=== PATIENT | female | born 1975 | race Caucasian/White ===

== ENCOUNTER 2016-12-18 13:42 | Observation (INO) ==
[2016-12-18 14:56] VITALS: BMI 47.0
[2016-12-18] MEDS ORDERED: ONDANSETRON 4 MG/2 ML INJECTION IVP PRN (15:16)
[2016-12-18] MEDS ORDERED: MORPHINE SULFATE 4 MG SYRINGE IVP PRN (15:16)
[2016-12-18] MEDS ORDERED: ACETAMINOPHEN 325 MG TABLET PO PRN (15:16)
--- NOTE | 2016-12-18 16:09 | Cardiology History & Physical ---
History of Present Illness Chief complaint: chest pain HPI: Supriya is a 41 year old female who is well known to Dr. Avelar with a history of CAD, HTN, DM type II, and tobacco use. She was at work earlier today when she began having chest pain and tightness which radiated under her left axilla and into her left elbow. She reports SOA with the episode that she describes as the inability to breathe due to the chest tightness. She was taken to the ED, where she received 4 baby Aspirin and after 3 SL nitro her pain resolved and has not returned. She had normal labs and EKG was without ischemic changes. She is examined in her room on the Surgical unit, family members are at the bedside. She denies recent illness, fever, chills, dizziness or syncope, sore throat, cough, N/V/D, or dysuria. Review of Systems - Constitutional Constitutional: Absent: chills, fever(s), weight loss - EENMT Eyes: Absent: change in vision Balance: Absent: vertigo Mouth/Throat: Absent: sore throat - Cardiovascular Cardiovascular: Present: chest pain. Absent: palpitations, syncope, dyspnea on exertion, orthopnea, edema Vascular: Absent: pedal edema - Respiratory Respiratory: Absent: cough, dyspnea - Gastrointestinal Gastrointestinal: Absent: diarrhea, nausea, vomiting - Genitourinary Genitourinary: Absent: dysuria - Integumentary/Breasts Integumentary: Absent: rash - Neurological Neurological: Absent: dizziness - Endocrine Endocrine: Absent: palpitations PFSH Patient Stated Medical History Other Cardiology Yes: "HEART BURN" Bronchitis Yes Diabetes Mellitus Type 2 Yes Irregular Menses Yes Clinic Medical History (Last Reviewed 11/21/16 @ 13:03 by JAQUELINE Rahman) Diabetes mellitus (Chronic Medical) HTN (hypertension) (Chronic Medical) PCOS (polycystic ovarian syndrome) (Chronic Medical) Surgical History: 3 C sections. Hysterectomy 2009 (gained 75# in a year after on hormones). Cholecystectomy 1999. Tubal ligation 2004. Heart cath (some blockage) 10/2014. Left knee repair (root tear of medial meniscus) 11/2015. Dr. Castillo. Re-do of knee repair 02/2016. Family History: Family History (Last Reviewed 11/21/16 @ 13:03 by JAQUELINE Rahman) Father , age 40 - heart attack Heart attack - Social History Smoking status: Current every day smoker Substance use type: does not use Alcohol intake frequency: does not drink Household members: children Current occupational status: employed Current residence: Apartment/Private Home Medications Home Medications Medication Instructions Recorded Confirmed Type Metoprolol Tartrate 50 mg PO BID #0 tab 11/10/14 12/18/16 History GlyBURIDE [Micronase] 5 mg PO DAILY 12/18/16 12/18/16 History Lisinopril [Prinivil] 10 mg PO DAILY 12/18/16 12/18/16 History Allergies Allergy/AdvReac Type Severity Reaction Status Date / Time cortisone Allergy Severe HIVES AND Verified 11/21/16 13:03 MOUTH SORES morphine Allergy Severe hives, Verified 11/21/16 13:03 Exam Vital signs: Temperature 98.0 F 12/18/16 14:54 Pulse Rate 71 12/18/16 14:54 Respiratory Rate 20 12/18/16 14:54 Blood Pressure 144/90 H 12/18/16 14:54 Pulse Oximetry 97 12/18/16 14:54 Oxygen Delivery Method Room Air - Constitutional no acute distress, obese, cooperative - Routine HEENT Exam Head: Present: normocephalic Nose: moist mucous membranes - Routine Neck Exam Absent: JVD, carotid bruit - Routine Chest/Breast/Axilla Exam Chest wall: Absent: tenderness - Routine Respiratory Exam Present: CTA bilaterally. Absent: rales, wheezes - Routine Cardiovascular Exam Present: RRR, no murmur - Routine Abdominal Exam Present: soft, normoactive bowel sounds - Routine Extremities Exam Present: no edema - Routine Skin Exam Present: intact, dry, warm. Absent: rash - Routine Neurological Exam Present: alert, oriented X3 - Routine Psychiatric Exam Present: normal affect, normal thought process Results 12/19/16 04:04 12/19/16 04:04 Intake and Output 12/18/16 12/18/16 12/18/16 06:59 14:59 22:59 Other: Weight 291 lb 7.218 oz Patient Weight 12/19/16 06:59 Weight 291 lb 7.218 oz - Imaging and Cardiology EKG results: image reviewed - EKG Interpretation EKG: sinus rhythm Hospital Course This is a general summary of the patient's hospital course. For more details refer to the complete medical record. Time spent with patient: 25 - 35 minutes Assessment and Plan (1) Precordial chest pain Status: Acute Resolved with Nitro and Aspirin, has not returned. Trend serial troponin levels , (first negative), repeat EKG. Start Aspirin 81mg po daily in am. (2) Atherosclerotic heart disease of [place] coronary artery without angina pectoris Status: Acute Last heart cath in 2014 with mild to moderate CAD, Continue current therapy with routine monitoring (3) Mixed hyperlipidemia Status: Acute (4) Essential (primary) hypertension Status: Acute (5) Type 2 diabetes mellitus without complications Status: Acute - Attestation Attestation Narrative: Recommendation After examining the patient I agree with the above assessment. I am involved in the formulation of the patient's plan of care. 12/19/16 13:03 Sepsis Assessment - Evaluation Sepsis screening result: No Definite Risk
[2016-12-18 23:40] VITALS: TEMP 98.7
[2016-12-19 07:43] VITALS: BP 139/69; PULSE 68; RESP 16; O2SAT 95
--- NOTE | 2016-12-19 08:59 | Discharge Summary ---
<Zoe Vickers - Last Filed: 12/19/16 08:56> Discharge Information Date of admission: 12/18/16 14:29 Anticipated date of discharge: 12/19/16 Attending Physician: Shubham Avelar MD Primary care physician: Olive Centeno, DALY - Discharge Diagnosis Discharge Diagnosis: CAD, HTN, DM - Laboratory Labs: 12/19/16 04:04 12/19/16 04:04 Laboratory Results - last 72 hr 12/18/16 12/18/16 12/18/16 15:38 17:38 18:15 WBC RBC Hgb Hct MCV MCH MCHC RDW Std Deviation Plt Count MPV Immature Gran % (Auto) Neut % (Auto) Lymph % (Auto) [place] % (Auto) Eos % (Auto) Baso % (Auto) Neut # Lymph # Sherman # Eos # Baso # Abs Immat Gran (auto) Turbidity Sodium Potassium Chloride Carbon Dioxide Anion Gap BUN Creatinine GFR Calculation BUN/Creatinine Ratio Glucose Glucometer 70 122 Calculated Osmolality Calcium Icterus Index Troponin I < 0.012 Specimen Hemolysis < 15 12/18/16 12/19/16 12/19/16 23:02 04:04 04:04 WBC 9.5 RBC 4.81 Hgb 13.8 Hct 42.5 MCV 88.4 MCH 28.7 MCHC 32.5 RDW Std Deviation 46.5 Plt Count 158 MPV 11.8 Immature Gran % (Auto) 0.3 Neut % (Auto) 56.7 Lymph % (Auto) 34.6 [place] % (Auto) 6.0 Eos % (Auto) 2.0 Baso % (Auto) 0.4 Neut # 5.4 Lymph # 3.3 Sherman # 0.6 Eos # 0.2 Baso # 0.0 Abs Immat Gran (auto) 0.03 Turbidity < 20 Sodium 140 Potassium 4.1 Chloride 108 H Carbon Dioxide 22 Anion Gap 10 BUN 12.0 Creatinine 0.6 L GFR Calculation 109 BUN/Creatinine Ratio 20 Glucose 233 H Glucometer Calculated Osmolality 276 Calcium 9.0 Icterus Index < 2 Troponin I < 0.012 < 0.012 Specimen Hemolysis < 15 < 15 12/19/16 06:08 WBC RBC Hgb Hct MCV MCH MCHC RDW Std Deviation Plt Count MPV Immature Gran % (Auto) Neut % (Auto) Lymph % (Auto) [place] % (Auto) Eos % (Auto) Baso % (Auto) Neut # Lymph # [place] # Eos # Baso # Abs Immat Gran (auto) Turbidity Sodium Potassium Chloride Carbon Dioxide Anion Gap BUN Creatinine GFR Calculation BUN/Creatinine Ratio Glucose Glucometer 199 Calculated Osmolality Calcium Icterus Index Troponin I Specimen Hemolysis History of Present Illness HPI: Supriya is a 41 year old female who is well known to Dr. Avelar with a history of CAD, HTN, DM type II, and tobacco use. She was at work earlier today when she began having chest pain and tightness which radiated under her left axilla and into her left elbow. She reports SOA with the episode that she describes as the inability to breathe due to the chest tightness. She was taken to the ED, where she received 4 baby Aspirin and after 3 SL nitro her pain resolved and has not returned. She had normal labs and EKG was without ischemic changes. She is examined in her room on the Surgical unit, family members are at the bedside. She denies recent illness, fever, chills, dizziness or syncope, sore throat, cough, N/V/D, or dysuria. Hospital Course This is a general summary of the patient's hospital course. For more details refer to the complete medical record. Hospital course: 12/18/16 Chest pain: Resolved with Nitro and Aspirin, has not returned. Trend serial troponin levels, (first negative), repeat EKG. Start Aspirin 81mg po daily in am. Will plan outpatient stress test for further evaluation. CAD: Last heart cath in 2014 with mild to moderate CAD, Will plan outpatient stress test for further evaluation. Continue current therapy with routine monitoring 12/19/16 Serial troponin levels were negative, repeat EKG without ischemic changes. Will discharge with follow up for outpatient stress test. Exam Vital signs: Temperature 98.7 F 12/18/16 23:39 Pulse Rate 68 12/19/16 07:42 Respiratory Rate 16 12/19/16 07:42 Blood Pressure 139/69 12/19/16 07:42 Pulse Oximetry 95 12/19/16 07:42 Oxygen Delivery Method Room Air - Constitutional no acute distress, obese, cooperative - Routine HEENT Exam Head: Present: normocephalic - Routine Neck Exam Absent: JVD, carotid bruit - Routine Chest/Breast/Axilla Exam Chest wall: Absent: tenderness - Routine Respiratory Exam Present: CTA bilaterally. Absent: rales, wheezes - Routine Cardiovascular Exam Present: no murmur. Absent: JVD - Routine Abdominal Exam Present: soft, normoactive bowel sounds - Routine Extremities Exam Present: no edema - Routine Skin Exam Present: intact, dry, warm - Routine Neurological Exam Present: alert, oriented X3 - Routine Psychiatric Exam Present: normal affect, normal thought process Results 12/19/16 04:04 12/19/16 04:04 Cardiac Enzymes 12/18/16 12/18/16 12/19/16 Range/Units 15:38 23:02 04:04 Troponin I < 0.012 < 0.012 < 0.012 (0-0.12) ng/ml CBC 12/19/16 Range/Units 04:04 WBC 9.5 (4.5-11.0) T/MM3 RBC 4.81 (4.00-5.20) M/MM3 Hgb 13.8 (12-16) GM/DL Hct 42.5 (36-46) % Plt Count 158 (130-400) T/MM3 Neut # 5.4 (1.8-7.7) T/MM3 Lymph # 3.3 (1-4.8) T/MM3 Sherman # 0.6 (0-0.8) T/MM3 Eos # 0.2 (0-0.5) T/MM3 Baso # 0.0 (0-0.2) T/MM3 Comprehensive Metabolic Panel 12/19/16 Range/Units 04:04 Sodium 140 (134-144) MEQ/L Potassium 4.1 (3.6-5) MEQ/L Chloride 108 H (98-107) MEQ/L Carbon Dioxide 22 (22-30) MEQ/L BUN 12.0 (7-17) MG/DL Creatinine 0.6 L (0.7-1.2) MG/DL Glucose 233 H (65-110) MG/DL Calcium 9.0 (8.4-10.2) MG/DL Intake and Output 12/18/16 12/19/16 12/19/16 22:59 06:59 14:59 Intake Total 591 / 591 Balance 591 / 591 Intake: Oral 591 / 591 Other: # Voids 2 Weight 292 lb 1.8 oz Patient Weight 12/20/16 06:59 Weight 292 lb 1.8 oz - Imaging and Cardiology EKG results: image reviewed - EKG Interpretation EKG: WNL, sinus rhythm Discharge Plan - Med Rec/Dispo Referrals/Follow Up: Shubham Avelar MD [Physician] - 01/08/17 10:30 am Kush Instructions: Chest Pain (DC) Prescriptions: New Aspirin *EC* [Ecotrin] 81 mg PO DAILY #30 tablet Continue Metoprolol Tartrate 50 mg PO BID #0 tab GlyBURIDE [Micronase] 5 mg PO DAILY Lisinopril [Prinivil] 10 mg PO DAILY sitagliptin 100 mg tablet 100 mg PO DAILY #30 tab - Disposition 01 Discharged Home, Self-Care <Shubham Avelar - Last Filed: 12/19/16 13:10> Discharge Information Date of admission: 12/18/16 14:29 Attending Physician: Shubham Avelar MD Primary care physician: Olive Centeno APRN - Laboratory Labs: 12/19/16 04:04 12/19/16 04:04 Hospital Course This is a general summary of the patient's hospital course. For more details refer to the complete medical record. Exam Vital signs: Temperature 98.7 F 12/18/16 23:39 Pulse Rate 68 12/19/16 07:42 Respiratory Rate 16 12/19/16 07:42 Blood Pressure 139/69 12/19/16 07:42 Pulse Oximetry 95 12/19/16 07:42 Oxygen Delivery Method Room Air Results 12/19/16 04:04 12/19/16 04:04 Cardiac Enzymes 12/18/16 12/18/16 12/19/16 Range/Units 15:38 23:02 04:04 Troponin I < 0.012 < 0.012 < 0.012 (0-0.12) ng/ml CBC 12/19/16 Range/Units 04:04 WBC 9.5 (4.5-11.0) T/MM3 RBC 4.81 (4.00-5.20) M/MM3 Hgb 13.8 (12-16) GM/DL Hct 42.5 (36-46) % Plt Count 158 (130-400) T/MM3 Neut # 5.4 (1.8-7.7) T/MM3 Lymph # 3.3 (1-4.8) T/MM3 Sherman # 0.6 (0-0.8) T/MM3 Eos # 0.2 (0-0.5) T/MM3 Baso # 0.0 (0-0.2) T/MM3 Comprehensive Metabolic Panel 12/19/16 Range/Units 04:04 Sodium 140 (134-144) MEQ/L Potassium 4.1 (3.6-5) MEQ/L Chloride 108 H (98-107) MEQ/L Carbon Dioxide 22 (22-30) MEQ/L BUN 12.0 (7-17) MG/DL Creatinine 0.6 L (0.7-1.2) MG/DL Glucose 233 H (65-110) MG/DL Calcium 9.0 (8.4-10.2) MG/DL Intake and Output 12/18/16 12/19/16 12/19/16 22:59 06:59 14:59 Intake Total 591 / 591 Balance 591 / 591 Intake: Oral 591 / 591 Other: # Voids 2 Weight 132.5 kg Patient Weight 12/20/16 06:59 Weight 132.5 kg Discharge Plan - Med Rec/Dispo - Attestation Attestation Narrative: 12/19/16 13:10 Recommendation After examining the patient I agree with the above assessment. I am involved in the formulation of the patient's plan of care.
[2016-12-19] MEDS ORDERED: ASPIRIN *EC* 81 MG TABLET PO SCH (09:00)
== END 2016-12-19 10:08 | disposition home or self-care (01) ==
LOC: SRG
PROVIDERS: ADMIT Internal Medicine Cardiovascular Disease; ATTEND Internal Medicine Cardiovascular Disease

== ENCOUNTER 2017-07-28 15:46 | Observation (INO) ==
[2017-07-28] MEDS ORDERED: SALINE FLUSH 10ml SYRINGE IVF PRN (16:00)
--- OUTSIDE RECORDS SUMMARY | 2017-07-28 16:07 | External Medical Summary ---
:1975 Author Organization [employer] Care Team Providers Name Role Phone Yessy Saldaña Provider Role Unavailable Allergies, Adverse Reactions, Alerts Substance Reaction Event Type Cortizone-10 hives Drug Allergy Morphine Sulfate hives Drug Allergy Problems Problem Type Condition Code Onset Dates Condition Status Assessment Cough R05 Active Problem Essential (primary) hypertension I10 Active Problem Wheezing R06.2 Active Problem Cough R05 Active Problem Obesity, unspecified 278.00 Active Assessment Wheezing R06.2 Active Problem Unspecified essential hypertension 401.9 Active Problem Diabetes mellitus without mention of 250.02 Active complication, type II or unspecified type, uncontrolled Medications Medication Code Code Instructions Start End Status Dosage System Date Date Metoprolol Tartrate NDC 33330-5 50 MG Orally 1 tablet 733-01 Twice a day Lisinopril NDC 63155-9 20 MG Orally 1 tablet 268-01 Once a day Amoxicillin-Pot NDC 15441-6 875-125 MG Mar 15Mar 25, 1 tablet Clavulanate 275-34 Orally Twice a 2014 2014 day Ibuprofen NDC 43297-5 200 MG Orally 1 tablet 074-71 every 6 hrs as needed Guaifenesin-Codeine NDC 99740-2 100-10 MG/5ML Mar 15Mar 25, 5 ml as 110-04 Orally every 6 2014 2014 needed hrs Tradjenta NDC 58674-5 5 MG Orally 1 tablet 140-30 Once a day Tylenol NDC 29225-5 325 MG Orally 1 tablet 496-60 every 6 hrs as needed Hydrochlorothiazide NDC 33851-8 25 MG Orally 1 tablet 256-01 Once a day Albuterol Sulfate NDC 65920-0 (2.5 MG/3ML) Mar 15, 3 ml 990-52 0.083% 2014 Inhalation Three times a day Procedures Procedure Coding System Code Date OFFICE VISIT, EST-MOD. COMPLEXITY (25 MIN) CPT-4 55326 Mar 15, 2015 Vital Signs Date/Time: Mar 15, 2015 Height 66 in Weight 280.8 lbs Temperature 98.5 F Blood Pressure Diastolic 96 mm Hg Blood Pressure Systolic 156 mm Hg Cardiac Monitoring Heart Rate 78 /min BMI 45.32 Index Oximetry 94 % Results No Known Results Summary Purpose [employer] Submission
--- NOTE | 2017-07-28 16:12 | Emergency Department Report ---
General Adult HPI - General Chief complaint: Chest Pain Stated complaint: high bp, soa, chest pain, cough Time Seen by Provider: 07/28/17 15:59 Source: patient Mode of arrival: ambulatory Limitations: no limitations - History of Present Illness HPI narrative: 41-year-old female presents to the emergency department with a chief complaint of elevated blood pressure and chest tightness. Patient noted onset of symptoms one day ago. Patient has been battling upper respiratory symptoms and has been wheezing and having a cough that is nonproductive. He did not take her antihypertensive medication regimen today. She denies pain going through to her back but does note that her chest does feel tight. She was at home when her symptoms began. Symptoms have been persistent in nature since onset. She originally presented to urgent care and was referred to the emergency department for further evaluation and treatment. - Related Data Home Medications Medication Instructions Recorded Confirmed dapagliflozin 10 mg tablet 10 mg PO QAM 03/20/17 07/28/17 Catapres (clonidine HCl) 0.1 mg 0.1 mg PO BID PRN tab 07/28/17 07/28/17 tablet DiltiaZEM SR [Cardizem SR 125 MG 1 tab PO QAM 07/28/17 07/28/17 (12 HR RELEASE)] Insulin Glargine,Hum.rec.anlog 35 unit SQ QAM 07/28/17 07/28/17 [Lantus Solostar] Metoprolol Succinate (XL) [Toprol 50 mg PO BID 07/28/17 07/28/17 Xl] Previous Rx's Medication Instructions Recorded Zocor (simvastatin) 20 mg tablet 20 mg PO HS #90 tab 03/12/17 Maxzide-25mg (triamterene 37.5 2 tab PO QAM #60 tab 04/04/17 mg-hydrochlorothiazide 25 mg) tablet Albuterol Neb (0.083%) [Proventil 5 mg AEROSOL Q4H PRN #25 each 07/29/17 Neb (0.083%)] Benzonatate [Tessalon Perles] 200 mg PO TID PRN #20 cap 07/29/17 DiltiaZEM SR [Cardizem SR 125 MG 240 mg PO HS cap 07/29/17 (12 HR RELEASE)] Hydrocodone/Chlorphen Oral Liq 5 ml PO Q12H PRN #4 oz 07/29/17 [Tussionex] Lisinopril [Prinivil] 20 mg PO BID tab 07/29/17 Allergies Allergy/AdvReac Type Severity Reaction Status Date / Time cortisone Allergy Severe HIVES AND Verified 07/28/17 16:11 MOUTH SORES morphine Allergy Severe hives, Verified 07/28/17 16:11 Review of Systems Constitutional: Denies: fever, chills Eyes: Denies: eye pain, vision change ENT: Denies: ear pain, throat pain Cardiovascular: Reports: chest pain. Denies: palpitations Respiratory: Reports: cough, dyspnea, wheezes Gastrointestinal: Denies: abdominal pain, nausea, vomiting, diarrhea Genitourinary: Denies: urgency, dysuria Musculoskeletal: Denies: back pain, arthralgia Integumentary: Denies: erythema, rash Neurological: Denies: headache, numbness Psychiatric: Denies: anxiety, depression Endocrine: Denies: polydipsia, polyuria Hematological/Lymphatic: Denies: easy bruising, lymphadenopathy Allergic/Immunologic: Denies: facial swelling, urticaria PFSH Patient Stated Medical History Cerebrovascular Accident No Hypertension Yes Peripheral Vascular Disease No Other Cardiology Yes: "HEART BURN" Bronchitis Yes Diabetes Mellitus Type 2 Yes Recreational Drug Use No Irregular Menses Yes Clinic Medical History (Last Reviewed 07/28/17 @ 15:23 by Ofe Ashraf [facility]) Type 2 diabetes mellitus (Chronic Medical) PCOS (polycystic ovarian syndrome) (Chronic Medical) HTN (hypertension) (Chronic Medical) Surgical History: 3 C sections. Hysterectomy 2009 (gained 75# in a year after on hormones). Cholecystectomy 1999. Tubal ligation 2004. Heart cath (some blockage) 10/2014. Left knee repair (root tear of medial meniscus) 11/2015. Dr. Castillo. Re-do of knee repair 02/2016. Family History: Family History (Last Reviewed 07/28/17 @ 20:17 by Danica White MD) Father , age 40 - heart attack Heart attack - Social History Smoking status: Current every day smoker Substance use type: does not use Alcohol intake frequency: does not drink Household members: children Current occupational status: employed Current residence: Apartment/Private Home Physical Exam - Limitations Limitations: no limitations - General General appearance: alert, in no apparent distress - Normal Exams: Head:: Normocephalic without trauma Eyes:: Pupils are PERRLA w/ EOMI, No scleral icterus, irritation, or foreign bodies noted ENMT:: No facial trauma, nasal exudates, pharyngeal erythema, or exudates are noted Dental: No fractured, loose, or missing teeth noted Neck:: Full range of motion, without adenopathy, JVD, bruits or thyromegaly Chest/Respirations:: with good airflow (Bilateral end expiratory wheezes. ), and symmetry bilaterally Cardiovascular:: Regular rate and rhythm, without murmur or gallop, Pulses 2+ all extremities, capillary refill, <2 seconds all extremities Abdomen:: Bowel sounds positive, soft, non-tender, non-distended, no hepatosplenomegaly, masses or bruits noted Lymphatic:: No lymphadenopathy, or lymphedema noted Musculoskeletal:: No tenderness, or deformity noted, good range of motion, all extremities Integumentary:: No rashes, hives, or bruising noted, hair and nails, without abnormality Neurological:: Patient is alert, and oriented, cranial nerves, motor/sensory/ cerebellar, exams w/o gross deficits, to observation Psychiatric:: Patient exhibits, appropriate attention, emotion and affect Course Vital Signs Pulse Rate 99 07/28/17 15:59 Temperature 98.1 F 07/29/17 09:00 Pulse Rate 52 L 07/29/17 11:00 Respiratory Rate 22 07/29/17 11:00 Blood Pressure 138/80 07/29/17 10:00 Pulse Oximetry 94 07/29/17 10:00 Medical Decision Making - [facility] Narrative Medical decision making narrative: Labs / imaging were discussed in detail with the patient and family and questions are answered. Patient is given her oral antihypertensive medication regimen in the emergency department with improvement of blood pressure. She will be monitored to ensure slow lowering of blood pressure so as not to injure her cerebral perfusion pressure. Patient is still hypertensive at 200 systolic and is discussed with Dr. White and admitted to the CCU in improved condition. She is given aspirin 324 mg by mouth 1. She is given a DuoNeb in the emergency Department. Patient is in agreement with the current plan of management. She is admitted to the hospital in improved condition. No further orders from accepting physician who is in agreement with the current plan of management. - Differential Diagnosis hypertensive urgency, hypertensive emergency, acs, medical noncompliance - Lab Data Result diagrams: 07/29/17 04:15 07/29/17 04:15 Lab Results 07/28/17 07/28/17 Range/Units 16:07 16:07 WBC 11.3 H (4.5-11.0) T/MM3 RBC 5.02 (4.00-5.20) M/MM3 Hgb 14.8 (12-16) GM/DL Hct 43.3 (36-46) % MCV 86.3 (80-100) UM3 MCH 29.5 (26-34) UUG MCHC 34.2 (31-37) GM/DL RDW Std Deviation 44.1 (36.9-50.2) FL Plt Count 149 (130-400) T/MM3 MPV 11.1 (9.4-12.4) UM3 Immature Gran % (Auto) 0.4 (0.0-0.5) % Neut % (Auto) 62.2 (33-66) % Lymph % (Auto) 29.8 (23-45) % [place] % (Auto) 5.5 (0-9.0) % Eos % (Auto) 1.8 (0-4) % Baso % (Auto) 0.3 (0-2) % Neut # (Auto) 7.0 (1.8-7.7) T/MM3 Lymph # (Auto) 3.4 (1-4.8) T/MM3 [place] # (Auto) 0.6 (0-0.8) T/MM3 Eos # (Auto) 0.2 (0-0.5) T/MM3 Baso # (Auto) 0.0 (0-0.2) T/MM3 Abs Immat Gran (auto) 0.05 H (0.00-0.03) T/MM3 Turbidity < 20 (0-20) Sodium 141 (134-144) MEQ/L Potassium 3.9 (3.6-5) MEQ/L Chloride 105 (98-107) MEQ/L Carbon Dioxide 23 (22-30) MEQ/L Anion Gap 13 (5-15) MEQ/L BUN 12.0 (7-17) MG/DL Creatinine 0.6 L (0.7-1.2) mg/dL GFR Calculation 109 BUN/Creatinine Ratio 20 (6-26) RATIO Glucose 270 H (65-110) MG/DL Calculated Osmolality 281 H (261-280) MOSM/KG Calcium 9.5 (8.4-10.2) MG/DL Total Bilirubin 0.30 (0.20-1.30) MG/DL Icterus Index < 2 (0-7) AST 17 (14-36) U/L ALT 32 (9-52) U/L Alkaline Phosphatase 109 (38-126) U/L Troponin I < 0.012 (0-0.12) ng/ml Total Protein 7.9 (6.3-8.2) g/dL Albumin 4.1 (3.5-5.0) g/dL Globulin 3.8 H (2.4-3.6) G/DL Albumin/Globulin Ratio 1.1 (1.1-2.2) RATIO Specimen Hemolysis < 15 (0-25) - Radiology Data CXR - No acute processes. - EKG Data EKG #1 EKG results narrative: Sinus rhythm. Normal EKG. 99 bpm. No STEMI. Disposition Clinical Impression: Hypertensive urgency Disposition: 02 To [facility] Condition: Improved Time of Disposition: 17:46 (Admit. Dr. White. ) - Seen By: physician
[2017-07-28] MEDS ORDERED: IOHEXOL 350mg/ml 75ml INJECTION ONE (17:04)
[2017-07-28] MEDS ORDERED: IOHEXOL 350mg/ml 50ml INJECTION ONE (17:05)
[2017-07-28] MEDS ORDERED: NS 0 ML ONE (17:05)
[2017-07-28] MEDS ORDERED: SALINE FLUSH 10ml SYRINGE ONE (17:05)
[2017-07-28] MEDS ORDERED: ALBUTEROL/IPRATROPIUM 2.5mg-0.5mg/3ml NEB AEROSOL ONE (17:54)
[2017-07-28] MEDS ORDERED: ASPIRIN 81 MG CHEWABLE TABLET PO ONE (18:15)
[2017-07-28] MEDS ORDERED: DILTIAZEM 120 MG PO ONE (18:33)
[2017-07-28] MEDS ORDERED: ONDANSETRON 4 MG/2 ML INJECTION IVP PRN (19:19)
[2017-07-28] MEDS ORDERED: HYDROCODONE/CHLORPHENIRAMINE ER ORAL LIQ 5ml PO PRN (19:23)
[2017-07-28 19:37] VITALS: BMI 47.4
[2017-07-28] MEDS ORDERED: HYDRALAZINE 20 MG/ML INJECTION IVP PRN (19:37)
--- NOTE | 2017-07-28 20:16 | History & Physical Report ---
History of Present Illness Date: 07/28/17 Chief complaint: hypertensive urgency HPI: Supriya is a 41-year-old female who presented to intermediate care earlier today for evaluation of an upper respiratory infection characterized by minimally productive cough, wheezing, and tightness in her chest present for 2-3 days. She feels that she can't take it deep breath due to the tightness in her chest and wheezing. Chest and sinus congestion and postnasal drainage but no ear symptoms. She denies having fevers or chills. She reports that she coughed all night last night and is excessively fatigued. Additionally a family member was hospitalized in [place] and she spent part of the night in [place]. Subsequently she did not take her morning blood pressure medications. Which presented to intermediate care today her blood pressure was significantly elevated with initial report of 231/137. She was referred to the emergency room for further evaluation and management. On arrival in the emergency room blood pressure was 272/159. Patient reports that typically when her blood pressure is elevated she is aware of it and has a headache which is not present at this time. She was treated with an initial dose of 0.1 mg clonidine and later received a dose of po metoprolol. She was additionally treated with a single breathing treatment which relaxed breathing and relieved wheezing. Patient describes history of hypertension with prior workup by Dr. Avelar including evaluation of her adrenal glands and renal arteries within the past year. Renal sonogram with Doppler last February suggested some component of right renal artery stenosis. Review of Systems All systems PM: 10-point ROS was reviewed, no additional remarkable complaints except (URI symptoms as described in history of present illness, sleep disruption from cough, headaches when blood pressure is elevated (but only checks her blood pressure when she has a headache); remainder of comprehensive review of systems was negative.) Past Medical History Patient Stated Medical History Hypertension Yes Bronchitis Yes Diabetes Mellitus Type 2 Yes Irregular Menses Yes Clinic Medical History (Last Reviewed 07/28/17 @ 15:23 by Ofe Ashraf Fredy) Type 2 diabetes mellitus (Chronic Medical) PCOS (polycystic ovarian syndrome) (Chronic Medical) HTN (hypertension) (Chronic Medical) Surgical History: 3 C sections. Hysterectomy 2009 (gained 75# in a year after on hormones). Cholecystectomy 1999. Tubal ligation 2004. Heart cath (some blockage) 10/2014. Left knee repair (root tear of medial meniscus) 11/2015. Dr. Castillo. Re-do of knee repair 02/2016. Family History: Family History (Last Reviewed 07/28/17 @ 15:23 by Ofe Ashraf [facility]) Father , age 40 - heart attack Heart attack Family History Updates: Mother is healthy; patient denies family history of hypertension - Social History Smoking status: Current every day smoker Packs per day: 0.5 Substance use type: does not use Alcohol intake frequency: does not drink Household members: spouse, children Current occupational status: employed (daycare) Social history: PCP-Olive Centeno APRN Full code Alternate decision maker-patient's Luis Alfredo Lopez Medications Home Medications Medication Instructions Recorded Confirmed Type Zocor (simvastatin) 20 mg tablet 20 mg PO HS #90 tab 03/12/17 07/28/17 Rx dapagliflozin 10 mg tablet 10 mg PO QAM 03/20/17 07/28/17 History Maxzide-25mg (triamterene 37.5 2 tab PO QAM #60 tab 04/04/17 07/28/17 Rx mg-hydrochlorothiazide 25 mg) tablet Catapres (clonidine HCl) 0.1 mg 0.1 mg PO BID PRN tab 07/28/17 07/28/17 History tablet DiltiaZEM SR [Cardizem SR 125 MG 1 tab PO QAM 07/28/17 07/28/17 History (12 HR RELEASE)] Insulin Glargine,Hum.rec.anlog 35 unit SQ QAM 07/28/17 07/28/17 History [Lantus Solostar] Lisinopril [Prinivil] 1 tab PO HS 07/28/17 07/28/17 History Lisinopril [Zestril] 2 tab PO QAM 07/28/17 07/28/17 History Metoprolol Succinate (XL) [Toprol 50 mg PO BID 07/28/17 07/28/17 History Xl] dilTIAZem HCl [Diltiazem ER] 2 tab PO HS 07/28/17 07/28/17 History Allergies Allergy/AdvReac Type Severity Reaction Status Date / Time cortisone Allergy Severe HIVES AND Verified 07/28/17 16:11 MOUTH SORES morphine Allergy Severe hives, Verified 07/28/17 16:11 Exam Vital Signs: Temperature 98.5 F 07/28/17 16:00 Pulse Rate 77 07/28/17 19:31 Respiratory Rate 21 07/28/17 18:45 Blood Pressure 198/108 H 07/28/17 19:03 Pulse Oximetry 96 -RA 07/28/17 19:31 EXAM: General-obese female, NAD, fatigued HEENT-PERRL, EOMI without nystagmus, conjugate gaze, conjunctiva clear, sclera anicteric, facial structures symmetric, oropharynx clear, neck supple and without adenopathy Lungs-respirations nonlabored, good airflow, breath sounds clear anteriorly Cardiac-regular rhythm, S1-S2 Abd-soft, nontender, without palpable mass, bowel sounds diminished Ext-without edema Skin-without exposed wounds or generalized rash Neuro-cranial nerves III through XII intact, no tremors, motor tone/power within normal limits sensation intact 4 extremities to light touch Psych-fatigued, cooperative Telemetry Rhythm: Sinus Rhythm Height/Weight/BMI: Height 1.65 m Weight 129.2 kg Body Mass Index 47.4 Results - Labs CBC & Chem 7: 07/28/17 16:07 07/28/17 16:07 Labs: Liver enzymes are unremarkable Respiratory viral panel pending - ECG Data Tracing #1 Sinus rhythm, rate 99; no worrisome ST/T-wave changes-trivial ST depression in lead 3 which appears to be present previously. - Imaging and Cardiology Chest x-ray Status: image reviewed by me (JORGE) Assessment and Plan (1) Hypertensive urgency Current visit: Yes Status: Acute (2) URI (upper respiratory infection) Current visit: Yes Status: Acute Assessment and Plan: Impression: Hypertensive urgency URI Chronic hypertension, possible renal artery stenosis Diabetes mellitus, type II, chronic insulin therapy History polycystic ovary disease Hyperlipidemia Plan: Supriya is being hospitalized in the ICU for close observation of her blood pressure as medications are resumed. Usual home regimen. Current medication list as reflected in the H&P does not correspond to the medications patient reported to me (lisinopril 20 mg twice a day, diltiazem ER 120 mg every morning and 240 mg at bedtime; patient reports taking clonidine only only if her blood pressure is "too high"). Additional clonidine can be given if needed hydralazine will also be available. May require reassessment for renal artery stenosis. Respiratory viral panel being obtained; symptomatic management with Tessalon and Tussionex. Breathing treatments to be continued as needed. Monitor blood sugars, insulin as needed for hyperglycemia; continue home regimen. Diabetic diet. Patient will return to the care of Olive Centeno APRN at completion of hospitalization. Discussed with Dr. Garcia prior to admission; old records/outpatient records reviewed. DVT Prophylaxis: SCD's Resuscitation Status: Full Code - Physician Narrative Narrative: Date: 07/28/17 Time: 2007 Hospital Course Summary Disclaimer: The visit summary below is not to be considered part of the above Progress Note. Hospital Course: 07/28/17 Supriya is being hospitalized in the ICU for close observation of her blood pressure as medications are resumed. Usual home regimen. Current medication list as reflected in the H&P does not correspond to the medications patient reported to me (lisinopril 20 mg twice a day, diltiazem ER 120 mg every morning and 240 mg at bedtime; patient reports taking clonidine only only if her blood pressure is "too high"). Additional clonidine can be given if needed hydralazine will also be available. May require reassessment for renal artery stenosis. Respiratory viral panel being obtained; symptomatic management with Tessalon and Tussionex. Breathing treatments to be continued as needed.
[2017-07-28] MEDS ORDERED: INSULIN ASPART 100unit/ml INJECTION SQ PRN (20:25)
[2017-07-28] MEDS: LISINOPRIL 20 MG TABLET PO SCH (20:45)
[2017-07-28] MEDS ORDERED: DILTIAZEM HCL PO SCH (21:00)
[2017-07-28] MEDS ORDERED: SIMVASTATIN 20 MG TABLET PO SCH (21:00)
[2017-07-28] MEDS: ALBUTEROL 2.5mg/3ml (0.083%) NEB AEROSOL PRN (21:52)
[2017-07-29] MEDS: BENZONATATE 200 MG CAPSULE PO PRN ×2 (01:59→09:20)
[2017-07-29] MEDS ORDERED: IBUPROFEN 400 MG TABLET PO PRN (04:15)
--- NOTE | 2017-07-29 07:56 | XRay Report ---
INDICATION: cough PROCEDURE: CHEST 2-VIEWS UPRIGHT (PA & LAT) Encounter: Initial COMPARISON: March 14, 2015 FINDINGS: The lungs are clear without evidence of focal abnormal airspace opacity. There is no pleural effusion or pneumothorax. The heart size, mediastinal contours and pulmonary vascularity are within normal limits. There is no significant skeletal abnormality. IMPRESSION: No acute cardiopulmonary disease. .
[2017-07-29] MEDS ORDERED: INSULIN GLARGINE 100unit/ml INJECTION SQ SCH (09:00)
[2017-07-29] MEDS ORDERED: DAPAGLIFLOZIN 5 MG TABLET PO SCH (09:00)
[2017-07-29] MEDS ORDERED: TRIAMTERENE/HCTZ 37.5 MG-25 MG TABLET PO SCH (09:00)
[2017-07-29] MEDS: ALBUTEROL 2.5mg/3ml (0.083%) NEB AEROSOL PRN (09:00)
[2017-07-29] MEDS ORDERED: DILTIAZEM 120 MG PO SCH ×2 (09:00→21:00)
[2017-07-29 09:05] VITALS: RESP 22
[2017-07-29] MEDS: LISINOPRIL 20 MG TABLET PO SCH (09:22)
--- NOTE | 2017-07-29 11:42 | Discharge Summary ---
Discharge Information Date of admission: 07/28/17 18:06 Anticipated date of discharge: 07/29/17 Attending Physician: Danica White MD Primary care physician: Olive Centeno APRN - Discharge Diagnosis (1) Hypertensive urgency Status: Acute (2) URI (upper respiratory infection) Status: Acute Hypertensive urgency URI Chronic hypertension, possible renal artery stenosis Diabetes mellitus, type II, chronic insulin therapy History polycystic ovary disease Hyperlipidemia - Laboratory Labs: 07/29/17 04:15 07/29/17 04:15 Respiratory viral panel negative on admission Troponin < 0.012 - Radiology Radiology: Chest x-ray on 07/28/17-NAD History of Present Illness HPI: Supriya is a 41-year-old female who presented to intermediate care earlier today for evaluation of an upper respiratory infection characterized by minimally productive cough, wheezing, and tightness in her chest present for 2-3 days. She feels that she can't take it deep breath due to the tightness in her chest and wheezing. Chest and sinus congestion and postnasal drainage but no ear symptoms. She denies having fevers or chills. She reports that she coughed all night last night and is excessively fatigued. Additionally a family member was hospitalized in [place] and she spent part of the night in [place]. Subsequently she did not take her morning blood pressure medications. Which presented to intermediate care today her blood pressure was significantly elevated with initial report of 231/137. She was referred to the emergency room for further evaluation and management. On arrival in the emergency room blood pressure was 272/159. Patient reports that typically when her blood pressure is elevated she is aware of it and has a headache which is not present at this time. She was treated with an initial dose of 0.1 mg clonidine and later received a dose of po metoprolol. She was additionally treated with a single breathing treatment which relaxed breathing and relieved wheezing. Patient describes history of hypertension with prior workup by Dr. Avelar including evaluation of her adrenal glands and renal arteries within the past year. Renal sonogram with Doppler last February suggested some component of right renal artery stenosis. Objective Vital signs: Temperature 98.5 F 07/28/17 20:20 Pulse Rate 69 07/29/17 07:01 Respiratory Rate 22 07/29/17 09:02 Blood Pressure 133/76 07/29/17 07:01 Pulse Oximetry 95 07/29/17 09:02 NAD, alert, fluent speech Respirations nonlabored, good airflow, breath sounds clear although slightly diminished at the bases Regular cardiac rhythm, S1-S2 Height/Weight/BMI: Height 1.65 m Weight 129.2 kg Body Mass Index 47.4 Hospital Course This is a general summary of the patient's hospital course. For more details refer to the complete medical record. Hospital course: Supriya was hospitalized in the ICU for close observation of her blood pressure after presenting for evaluation of an upper respiratory infection. She received a single dose of clonidine in the emergency room followed by 50 mg of metoprolol. On arrival in the ICU blood pressure had improved slightly with readings of approximately 170/102. Home doses of diltiazem and lisinopril were given with progressive improvement in blood pressure overnight. Resumption of usual blood pressure regimen appears to be adequate and maintaining control and no changes in chronic therapy were made. Respiratory symptoms were treated symptomatically with prn albuterol, Tessalon Perles, and Tussionex. Clinically patient described feeling improved the morning of 07/29 with resolution of wheezing and decreased nasal/chest congestion. She continued to deny headache. She was subsequently felt stable for discharge at this time with plans to follow-up with her primary care provider in approximately 1 week. Blood sugars remained elevated although she missed usual medications yesterday and I anticipate it will be 2-3 days before blood sugars fully stabilized. Resuscitation Status: Full Code Discharge Plan - Discharge Disposition Discharge Date: 07/29/17 Disposition: 01 Discharged Home, Self-Care *Condition: Improved Reason For Visit (Visit label in EMR): uncontrolled HTN - Discharge Medications *Discharge Medications: New Benzonatate [Tessalon Perles] 200 mg PO TID PRN #20 cap PRN Reason: Cough DiltiaZEM SR [Cardizem SR 125 MG (12 HR RELEASE)] 240 mg PO HS cap Hydrocodone/Chlorphen Oral Liq [Tussionex] 5 ml PO Q12H PRN #4 oz PRN Reason: Cough Albuterol Neb (0.083%) [Proventil Neb (0.083%)] 5 mg AEROSOL Q4H PRN #25 each PRN Reason: Shortness Of Air/Wheezing Lisinopril [Prinivil] 20 mg PO BID tab Continue DiltiaZEM SR [Cardizem SR 125 MG (12 HR RELEASE)] 1 tab PO QAM Insulin Glargine,Hum.rec.anlog [Lantus Solostar] 35 unit SQ QAM Metoprolol Succinate (XL) [Toprol Xl] 50 mg PO BID Zocor (simvastatin) 20 mg tablet 20 mg PO HS #90 tab dapagliflozin 10 mg tablet 10 mg PO QAM Catapres (clonidine HCl) 0.1 mg tablet 0.1 mg PO BID PRN tab PRN Reason: Headache /Pain Maxzide-25mg (triamterene 37.5 mg-hydrochlorothiazide 25 mg) tablet 2 tab PO QAM #60 tab Discontinued Lisinopril [Zestril] 2 tab PO QAM dilTIAZem HCl [Diltiazem ER] 2 tab PO HS Lisinopril [Prinivil] 1 tab PO HS - Discharge Packet/Instructions *Diet: diabetic, low salt *Activity: as tolerates *Pain Management/Treatment: tylenol or ibuprofen per package instructions *Wound Care: not applicable Additional Instructions: continue home medications as before--I did not change your usual regimen for diabetes or blood pressure although the computer list appears that I did. Albuterol per nebulizer every 4 hours as needed for cough and tightness in your chest. Tessalon Perles 3 x daily and Tussionex cough syrup 2 x daily as needed for cough. *Expected Signs/Symptoms: lingering cough, chest congestion for 5-10 days *Notify Physician if: fever, increasing difficulty breathing *During Business Hours Contact: Olive Centeno's office *After Business Hours Contact: Call [facility] at [phone] and have numerical control operator paged for the [place] office. *Pending Lab/Results: No Pending Lab - Referrals/Follow Up *Referrals/Follow Up: Olive Centeno, DALY [Family Provider] - 1 Week - Patient Handouts Patient Handouts: Chronic Hypertension (DC) - Dismissal Complete Discharge Instructions are:: Complete Physician Narrative - Narrative Attestation Narrative: Date: 07/29/17 Time: 6570
[2017-07-29 13:09] VITALS: BP 138/80; PULSE 52; TEMP 98.1; O2SAT 94
== END 2017-07-29 11:53 | disposition home or self-care (01) ==
LOC: ED 15:46 → CCU 15:46
PROVIDERS: ADMIT Internal Medicine; ATTEND Internal Medicine